=== PATIENT | female | born 1995 | race Two or more races ===

== ENCOUNTER 2016-08-29 18:20 | Inpatient (IN) | payer BC, MEDICAID ==
[~2016-08-29] VITALS: Ht 165.1 cm; Wt 105.0 kg
--- NOTE | ~2016-08-29 | OR ---
PATIENT'S NAME: JAZMYN VEGA [facility] AGE: 21 Y [address] ROOM: [place] [address] LOCATION: [facility] ADMIT DATE: 08/29/2016 OR/Procedure Report DISCHARGE DATE: FAMILY PHYSICIAN: Bruna Garber PA-C ATTENDING PHYSICIAN: BRANDEN COX SURGEON: Branden Cox MD ARCHEOLOGY FACULTY MEMBER: DATE OF PROCEDURE: 08/30/2016 PREOPERATIVE DIAGNOSES: 1. Intrauterine at 36 weeks 0 days. 2. Intrahepatic cholestasis of . 3. Obesity. POSTOPERATIVE DIAGNOSES: 1. Intrauterine at 36 weeks 0 days. 2. Intrahepatic cholestasis of . 3. Obesity. PROCEDURE PERFORMED: Spontaneous vaginal delivery over intact perineum. ANESTHESIA: Epidural. FINDINGS: Viable male with Apgars of 8 and 9 and weight of 2700 grams. Placenta intact with three-vessel cord. No perineal lacerations. No cervical or vaginal lacerations. ESTIMATED BLOOD LOSS: 300 mL. COMPLICATIONS: None. INDICATIONS: The patient is a 21-year-old G2, P 0-0-1-0 with intrauterine at 36 weeks 0 days, who presented to Labor and Delivery on the evening of 08/29/2016 for cervical ripening. Her induction was secondary to intrahepatic cholestasis with worsening LFTs. The patient received Celestone on 08/28/2016 and 08/29/2016 and was 48 hours status post Celestone at 11:30 on August 30, 2016. Given her rise in LFTs, delivery was recommended. The patient presented, she received 3 doses of Prostin. She was closed, thick, and high on admission. After 3 doses of Prostin, she was found to be 2 cm dilated. Pitocin was started for augmentation. She had artificial rupture of membranes around 1:15 in the afternoon on 08/30/2016, clear fluid. She then progressed to complete and started maternal expulsive efforts. DESCRIPTION OF PROCEDURE: The patient was placed in dorsal lithotomy position. She was prepped and draped in the usual fashion. With maternal PATIENT'S NAME: JAZMYN VEGA [facility] AGE: 21 Y [address] ROOM: [place] [address] LOCATION: [facility] ADMIT DATE: 08/29/2016 OR/Procedure Report DISCHARGE DATE: FAMILY PHYSICIAN: Bruna Garber PA-C ATTENDING PHYSICIAN: BRANDEN COX expulsive effort, the head was in the SHARITA position followed by the remainder of the fetus. The was placed on the mother's abdomen. After 30 seconds, the cord was clamped and cut. Cord blood was obtained. The placenta then delivered spontaneously intact with the three-vessel cord. The cervix, vagina, and perineum were inspected and no lacerations were noted. Instrument, sponge, and needle counts were correct at the conclusion of the case. DISPOSITION: Mom stable. Baby in room with mom. MD OPAL MITCHELL/lalo /[id number] d: 08/31/16 0400 t: 08/31/16 0849, OPERATIVE SUMMARY
--- NOTE | ~2016-08-29 | DS ---
PATIENT'S NAME: JAZMYN VEGA [facility] AGE: 21 Y [address] ROOM: [address] [place] [address] LOCATION: [facility] ADMIT DATE: 08/29/2016 Discharge Summary DISCHARGE DATE: 09/01/2016 FAMILY PHYSICIAN: Bruna Garber PA-C ATTENDING PHYSICIAN: Branden Cox DISCHARGE DIAGNOSES: 1. Status post spontaneous vaginal delivery. 2. Intrahepatic cholestasis of . 3. A 36-week intrauterine . PROCEDURES DURING ADMISSION: Spontaneous vaginal delivery. REASON FOR ADMISSION: Intrahepatic cholestasis of . HOSPITAL COURSE: The patient is a 21-year-old G1 who presented to Labor and Delivery for induction of labor secondary to intrahepatic cholestasis of at 36 weeks. Upon admission, her AST was noted to be elevated at 107, and her ALT was noted to be elevated at 320. She received Cytotec twice. She then had Pitocin started for augmentation. She progressed to complete and had a spontaneous vaginal delivery without complications. Her AST and ALT trended down during admission. She was ambulating and urinating and desired discharge to home on day #2. DISCHARGE INSTRUCTIONS: The patient was instructed to follow up in the clinic in 2 days for repeat lab work. She was instructed on pelvic rest for 6 weeks. She was instructed to call if fever greater than 100.4, pain not controlled with pain medications, or heavy vaginal bleeding. FOLLOWUP: The patient will follow up in clinic in 2 days for laboratory work. MD OPAL MITCHELL/lalo /[id number] d: 09/24/16 1336 t: 10/01/16 0819, DISCHARGE SUMMARY
[~2016-08-29 18:20] MED LIST: [UNRECOGNIZED DRUG - OTHER] PO
[2016-08-29] MEDS ORDERED: PRENATAL 1+1)(P1 TAB PO (18:56)
[2016-08-29] MEDS ORDERED: ACTIGALL300 M1 PO (18:56)
[2016-08-29 19:59] LABS: BASOPHIL % 0.1 %; HEMATOCRIT 33.9 % (33.0-46.0); HEMOGLOBIN 11.9 g/dL (11.0-15.0); IMMATURE GRANULOCYTE # 0.1 K/uL (0.0-0.3); IMMATURE GRANULOCYTE % 0.6 %; LYMPHOCYTE # 1.1 K/uL (0.8-4.0); LYMPHOCYTE % 8.1 %; MCH 31.7 pg (27.0-34.0); MCHC 35.1 gm/dL (32.0-36.5); MCV 90.4 fl (83.0-98.0); MONOCYTE # 0.4 K/uL (0.0-1.0); MONOCYTE % 2.6 %; MPV 11.2 fl (9.4-12.4); NEUTROPHIL # (ANC) 11.8 K/uL (1.8-7.8); NEUTROPHIL % 88.6 %; NRBC % 0 /100WBC (0-0.00); PLATELET COUNT 242 K/uL (150-450); RBC 3.75 M/uL (3.50-5.00); RDW-CV 12.5 % (11.9-14.6); WBC 13.3 K/uL (4.0-11.0)
[2016-08-29 20:16] LABS: ALBUMIN 2.6 gm/dL (3.5-5.0); ANION GAP 12.2 (10.0-19.0); AST 107 IU/L (10-40); BLOOD UREA NITROGEN 8 mg/dL (6-24); CALCIUM 8.9 mg/dL (8.5-10.5); CHLORIDE 108 mMol/L (96-110); CO2 22 mMol/L (22-32); CREATININE 0.6 mg/dL (0.5-1.1); ESTIMATED GFR (MDRD EQUATION) > 60; POTASSIUM 4.2 mMol/L (3.7-5.1); SODIUM 138 mMol/L (135-145); TOTAL PROTEIN 7.9 g/dL (6.0-8.4)
[2016-08-29 20:18] LABS: ALK PHOS 445 IU/L (33-138); ALT 320 IU/L (12-78); TOTAL BILIRUBIN 0.4 mg/dL (0.0-1.5)
--- NOTE | 2016-08-30 05:24 | NUR ---
VSS. Pain rating 6. Open to IV pain meds. Undecided about epidural. Last check .5/-2. Head down per Willie. IV patent to left hand. LR running at 125mL/hr. Hx of genital herpes. No current outbreak. Not on medicine for it. Received 3 doses of PGE2 2.5mg gel this shift. Last dose was at 0430.
--- NOTE | 2016-08-30 17:55 | NUR ---
Last VS: T:98.2 P: R: 16 BP: Pain rating: . Last pain med: Epidural @1530 Medicated at: Effective: Yes FHT: Dilatation: 4 Effacement %: 80 at 1745 Station: -1 caput Significant event: pitocin at 29mu and hold. epidural inplace and comfortable. IV INFUSING TO LT HAND, 500MLS UP IN PITOCIN AND 500MLS UP FOR LR. WALKER INPLACE. S/O AND MOTHER AT BS. NEEDS URSODIOL THIS PM (TID).
[2016-08-31 05:06] LABS: BASOPHIL % 0.2 %; EOSINOPHIL % 0.4 %; HEMATOCRIT 31.4 % (33.0-46.0); HEMOGLOBIN 10.8 g/dL (11.0-15.0); IMMATURE GRANULOCYTE % 0.3 %; LYMPHOCYTE # 1.8 K/uL (0.8-4.0); LYMPHOCYTE % 19.7 %; MCH 31.4 pg (27.0-34.0); MCHC 34.4 gm/dL (32.0-36.5); MCV 91.3 fl (83.0-98.0); MONOCYTE # 0.9 K/uL (0.0-1.0); MONOCYTE % 9.5 %; MPV 10.9 fl (9.4-12.4); NEUTROPHIL # (ANC) 6.4 K/uL (1.8-7.8); NEUTROPHIL % 69.9 %; NRBC % 0 /100WBC (0-0.00); PLATELET COUNT 208 K/uL (150-450); RBC 3.44 M/uL (3.50-5.00); RDW-CV 12.8 % (11.9-14.6); WBC 9.1 K/uL (4.0-11.0)
[2016-08-31 05:25] LABS: ALK PHOS 363 IU/L (33-138); ALT 278 IU/L (12-78); ANION GAP 11.8 (10.0-19.0); AST 87 IU/L (10-40); BLOOD UREA NITROGEN 8 mg/dL (6-24); CALCIUM 8.4 mg/dL (8.5-10.5); CHLORIDE 110 mMol/L (96-110); CO2 25 mMol/L (22-32); CREATININE 0.6 mg/dL (0.5-1.1); ESTIMATED GFR (MDRD EQUATION) > 60; POTASSIUM 3.8 mMol/L (3.7-5.1); SODIUM 143 mMol/L (135-145); TOTAL BILIRUBIN 0.6 mg/dL (0.0-1.5); TOTAL PROTEIN 6.3 g/dL (6.0-8.4)
--- NOTE | 2016-08-31 11:37 | NUR ---
Met with mom at bedside today. Introduced myself and explained my role with the CM department. Informed mom to contact Medicaid and alert them to baby Edgar's . Confirmed mom has all the necessary baby items at home and she denies any needs at this time. Discussed community resources with her. She is already established with WIC in [place] and denies any need for other resources. Discussed signs and symptoms of post depression with her. Patient denies any concerns. She has good family support to assist her with baby's needs. No additional needs.
--- NOTE | 2016-08-31 16:45 | NUR ---
Last VS: T:98.3 P:80 R: 14 BP: 96/56 Pain ratin. Last pain med: None given Medicated at: Effective: Yes Breasts: soft, Nipples: no problem Fundus: firm, midline, even Lochia: small, rubra Epis/Perineum: intact Voiding well: yes Significant event: Doing well, rooms in with baby all day. Vitals stable. Saline lock d/c'd. Family in room supportive. c/o diarrhea today so will hold evening surfak.
--- NOTE | 2016-09-01 04:54 | NUR ---
09/01 0500: VSS, nothing for pain, up ad sera, independent with cares, fundus firm midline, home today
[2016-09-01] MEDS ORDERED: PERCOCET 5-3251 EACH PO (10:03)
[2016-09-01] MEDS ORDERED: MOTRIN800 MG PO (10:03)
[2016-09-01] MEDS ORDERED: OXYCODONE HCL5 MG PO (10:11)
== END 2016-09-01 14:45 | disposition disaster alternative care site (69) | DRG 775 ==
LOC: GOBS 18:20
PROVIDERS: ADMIT Obstetrics & Gynecology
PROC: 3E033VJ Introduction of Other Hormone into Peripheral Vein, Percutaneous Approach (ICD-10-PCS; principal; 2016-08-30)
PROC: 10907ZC Drainage of Amniotic Fluid, Therapeutic from Products of Conception, Via Natural or Artificial Opening (ICD-10-PCS; principal; 2016-08-30)
PROC: 3E0P7GC Introduction of Other Therapeutic Substance into Female Reproductive, Via Natural or Artificial Opening (ICD-10-PCS; principal; 2016-08-30)
PROC: 10E0XZZ Delivery of Products of Conception, External Approach (ICD-10-PCS; principal; 2016-08-30)
DX: O26.62 Liver and biliary tract disorders in childbirth (principal); K83.1 Obstruction of bile duct; O99.214 Obesity complicating childbirth; E66.9 Obesity, unspecified; Z3A.36 36 weeks gestation of pregnancy; Z37.0 Single live birth
CPT/HCPCS: J2001; J2590; J3010; J7120